=== PATIENT | male | born 1940 | race Caucasian/White ===

== ENCOUNTER 2021-12-26 23:01 | Inpatient (IN) | payer MEDICARE ==
[~2021-12-26] VITALS: Ht 180.3 cm; Wt 104.5 kg
[2021-12-26 23:53] LABS: COLLECTION METHOD CATHETER
[2021-12-27 00:17] LABS: ALBUMIN 3.3 gm/dL (3.4-4.8); BILIRUBIN,TOTAL 1.4 mg/dL (0.2-1.2); CALCIUM 8.5 mg/dL (8.4-10.2); CREATININE, serum 1.4 mg/dL (0.72-1.25); POTASSIUM 4.3 mmol/L (3.5-4.5)
[2021-12-27 00:26] LABS: HEMOGLOBIN 12.1 g/dl (13.5-18.0); MEAN CELL VOLUME 97 fl (80.0-100.0); MEAN CORPUSCULAR HEMOGLOBIN 32 pg (27-31); MEAN CORPUSCULAR HGB CONC 34 g/dl (33.0-37.0); MEAN PLATELET VOLUME 9.6 fl (7.4-10.4); MUCOUS Present (NOT PRESENT); PH 5 (5-8); PLATELET COUNT 104 K/mm3 (130-400); RED BLOOD COUNT 3.73 M/mm3 (4.20-5.60); REDCELL DISTRIBUTION WIDTH-CV 14.1 % (11.5-14.5); SQUAMOUS EPITHELIAL 0-2 /hpf (0-10); URINE APPEARANCE Cloudy (CLEAR/HAZY); URINE BACTERIA Rare /hpf (NONE SEEN); URINE BILIRUBIN Negative (NEGATIVE); URINE BLOOD 2+ (NEGATIVE); URINE COLOR Amber (YELLOW); URINE GLUCOSE Negative (NEGATIVE); URINE KETONE Negative (NEGATIVE); URINE LEUKOCYTE ESTERASE 3+ (NEGATIVE); URINE NITRATE Positive (NEGATIVE); URINE PROTEIN(semi-quant) 1+ (NEGATIVE); URINE UROBILINOGEN Negative (NEGATIVE)
[2021-12-27] MEDS ORDERED: CRESTOR5 MG PO (00:50)
[2021-12-27] MEDS ORDERED: ZETIA 10MG TAB10 MG PO (00:51)
[2021-12-27] MEDS ORDERED: ZIAC 5/6.25MG T1 TAB PO (00:51)
[2021-12-27] MEDS ORDERED: FLOMAX 0.40.4 MG/CAP PO (00:52)
[2021-12-27] MEDS ORDERED: ZYLOPRIM 300MG300 MG PO (00:52)
[2021-12-27] MEDS ORDERED: ASPIRIN 81M81 MG/TA2 PO (00:53)
[2021-12-27] MEDS ORDERED: TYLENOL PM EXTR1 TA1 PO (00:53)
[2021-12-27] MEDS ORDERED: OMEGA-3 1000 MG1 CAP PO (00:55)
[2021-12-27] MEDS ORDERED: TURMERIC500 MG PO (00:55)
[2021-12-27] MEDS ORDERED: MULTI VITAMINS1 TAB PO (00:55)
[2021-12-27] MEDS ORDERED: B-12 500 MCG PO (00:56)
[2021-12-27] MEDS ORDERED: CALCIUM 600 PLU1 TAB PO (00:56)
[2021-12-27 01:04] LABS: BAND 9 % (0-10); EOSINOPHIL 1 % (0-4); NEUTROPHILS 85 % (42.0-75.2)
[2021-12-27 01:06] LABS: HYPOCHROMIA 1+; PLATELET ESTIMATE NORMAL (NORMAL)
[2021-12-27 01:07] LABS: ANISOCYTOSIS 1+
[2021-12-27 02:46] LABS: INR 1.5 (0.8-3.0); PROTHROMBIN TIME 16.9 SECONDS (9.7-12.8)
[2021-12-27 04:03] LABS: BASO # 0.1 K/mm3 (0.0-0.2); BASO % 0.3 % (0.0-2.0); EOS % 0.1 % (0.0-4.0); GRAN # 13.5 K/mm3 (1.4-6.5); HEMATOCRIT 37.9 % (42.0-52.0); HEMOGLOBIN 12.8 g/dl (13.5-18.0); LYMPH # 0.4 K/mm3 (1.2-3.4); LYMPH % 2.3 % (20.0-51.0); MEAN CELL VOLUME 96 fl (80.0-100.0); MEAN CORPUSCULAR HEMOGLOBIN 33 pg (27-31); MEAN CORPUSCULAR HGB CONC 34 g/dl (33.0-37.0); MEAN PLATELET VOLUME 9.6 fl (7.4-10.4); MONO % 6.5 % (1.7-9.3); PLATELET COUNT 89 K/mm3 (130-400); RED BLOOD COUNT 3.94 M/mm3 (4.20-5.60); REDCELL DISTRIBUTION WIDTH-CV 14.2 % (11.5-14.5)
[2021-12-27 04:23] LABS: ALBUMIN 3.3 gm/dL (3.4-4.8); BILIRUBIN,TOTAL 1.7 mg/dL (0.2-1.2); CALCIUM 8.3 mg/dL (8.4-10.2); CREATININE, serum 1.36 mg/dL (0.72-1.25); POTASSIUM 4.4 mmol/L (3.5-4.5); TOTAL PROTEIN 7.1 gm/dL (6.2-8.1)
--- NOTE | 2021-12-27 07:13 | NUR ---
1L bolus given in ED. Now on maintenance fluids of NS at 150 ml/hr. Sepsis fluid bolus intervention BECKY'adan.
[2021-12-27 07:56] VITALS: BP 145/70; PULSE 93; TEMP 98.5
--- NOTE | 2021-12-27 09:07 | NUR ---
Scheduled medications given. Admission assessment completed. Medications, allergies, and pharmacy preference reviewed. Patient currenlty requiring 2.5 L of O2 via nasal cannula. Medina catheter in place, cloudy dark yellow urine noted. Mucous present. Securement device in use, no kinks in tubing. Patient states that he has "A slight headache", but denies any further pain. VSS. Patient A&O. Call light in reach.
[2021-12-27 11:01] VITALS: BP 124/70; PULSE 87; TEMP 98.3
--- NOTE | 2021-12-27 14:03 | NUR ---
Pt lives at home with spouse,mando, . The pt is independent on all adls and does not use any DME. The pt reports DPO[employer] paperwork is done and his brother, sandy has it. 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 The pt reports still drives, and his pcp is Dr. Man and gets medications from [facility]. DC: Home
[2021-12-27 16:35] VITALS: BP 157/81; PULSE 97; TEMP 99.2
--- NOTE | 2021-12-27 18:30 | NUR ---
Patient has had an uneventful day. Currently requiring 4L of O2 via nasal cannula. Denies any pain, discomfort, SOA, or further needs at this time. Medina catheter in place, securement device in use, No kinks in tubing. Call light in reach.
[2021-12-27 20:06] VITALS: BP 145/58; PULSE 96; TEMP 99.4
--- NOTE | 2021-12-27 20:30 | NUR ---
Initial shift assessment done- Alert/orientedx4, states cannot get comfortable in the bed- moving side to side- has the o2 at 4L/oxymask, Appears flushed,, temp 99.3, IV fluids of NS at 150cc/hr- Medina to DD with yellow urine with sediment.
[2021-12-27 23:55] VITALS: BP 175/82; PULSE 88; TEMP 98.3
[2021-12-28] VITALS (25 sets, daily range): BP systolic 125–189; BP diastolic 54–108; PULSE 64–130; TEMP 97.2–99.1
--- NOTE | 2021-12-28 05:41 | NUR ---
Highest temp this shift was 99.4 at the start of the shift-- o2 at 4L/nc with sats 93%, No requests at this time, has been sleeping most of the shift.
[2021-12-28 06:47] LABS: BASO % 0.2 % (0.0-2.0); EOS % 0.3 % (0.0-4.0); GRAN # 11.5 K/mm3 (1.4-6.5); GRAN % 80.4 % (42.2-75.2); HEMOGLOBIN 12.3 g/dl (13.5-18.0); LYMPH # 1.2 K/mm3 (1.2-3.4); LYMPH % 8.7 % (20.0-51.0); MEAN CELL VOLUME 96 fl (80.0-100.0); MEAN CORPUSCULAR HEMOGLOBIN 33 pg (27-31); MEAN CORPUSCULAR HGB CONC 34 g/dl (33.0-37.0); MONO # 1.4 K/mm3 (0.1-0.6); MONO % 9.6 % (1.7-9.3); PLATELET COUNT 102 K/mm3 (130-400); RED BLOOD COUNT 3.77 M/mm3 (4.20-5.60); REDCELL DISTRIBUTION WIDTH-CV 14.1 % (11.5-14.5)
[2021-12-28 06:50] LABS: HEMATOCRIT 36.2 % (42.0-52.0); INR 1.4 (0.8-3.0)
[2021-12-28 07:07] LABS: BILIRUBIN,TOTAL 1.2 mg/dL (0.2-1.2); CALCIUM 8.3 mg/dL (8.4-10.2); CREATININE, serum 1.28 mg/dL (0.72-1.25); POTASSIUM 3.8 mmol/L (3.5-4.5); TOTAL PROTEIN 6.7 gm/dL (6.2-8.1)
--- NOTE | 2021-12-28 08:00 | NUR ---
PT INC SOB SO OXYGEN INC, BP INC, BP MEDS GIVEN WITH NORMAL SCHEDULED MEDS. PT VERY WEAK, UNABLE TO MOVE ON HIS OWN WITHOUT ASSISTANCE, SHEN IN PLACE, ASSESSMENT PERFORMED, IV FLUIDS INFUSING, NO OTHER NEEDS
--- NOTE | 2021-12-28 11:30 | NUR ---
KRISHNA VERGARA NOTIFIED OF PT INC HR, BP, AND OXYGEN NEEDS. EKG ORDER PLACED, PT PLACED ON TELE, RVP OBTAINED AND SENT TO LAB, CARDIZEM IV PUSHED PER ORDER AND TELE NOTIFIED OF ADMINISTRATION, CHRISTY NOTIFIED OF RVP RESULTS AND PT HR AFTER CARDIZEM. PT PLACED IN DROPLET PRECAUTIONS, PT SHEN LEAKING, READVANCED WITH MORE SALINE PLACED IN [place].
--- NOTE | 2021-12-28 14:26 | NUR ---
SW asked the clinical team for PT/OT to be ordered.
--- NOTE | 2021-12-28 16:06 | NUR ---
NOTIFIED DR. HARRISON OF PT HR AND BP, ORDERED CARDIZEM GTT AT 5ML/HR, ORDER PLACED
--- NOTE | 2021-12-28 16:44 | NUR ---
CARDIZEM DRIP STARTED PER ORDER, ATTACHED TO VITALS TO MONITOR
[2021-12-28 17:42] LABS: PARTIAL THROMBOPLASTIN TIME 37.1 SECONDS (26.0-37.0)
--- NOTE | 2021-12-28 17:49 | NUR ---
CARDIZEM DRIP INFUSING, HEPARIN DRIP STARTED PER PROTOCOL, HEPXA ORDER PLACED, PT REPORTS GENERALIZED PAIN BUT "FEELS MUCH BETTER" THAN EARLIER. PT HAS SOB AT REST, NO OTHER NEEDS
--- NOTE | 2021-12-28 18:35 | NUR ---
JULES HOLLAND NOTIFIED OF PT INC BP, ORDERED TO INC CARDIZEM GTT TO 10ML/HR
--- NOTE | 2021-12-28 23:17 | NUR ---
Patient assessed around 2029. Alert and oriented x 4, and able to make needs known. Denies pain and discomfort. Denies SOB and dyspnea at rest, does with exertion. LS expiratory wheezes. On oxygen at 8 L/min via NC. HRI. Continues on cardizem drip and heparin drip per orders. Voices no questions, needs, or concerns at this time. Daughter called and given update along with . All questions answered. Patient in bed with call light within reach.
[2021-12-29] VITALS (13 sets, daily range): BP systolic 112–157; BP diastolic 65–108; PULSE 76–105; TEMP 97.7–98.7
--- NOTE | 2021-12-29 06:33 | NUR ---
Patient has been resting in bed with call light within reach. Medina did leak a little. Changed, catheter care provided. Voices no further questions, needs, or concerns at this time. In bed with call light within reach.
[2021-12-29 06:39] LABS: BASO % 0.1 % (0.0-2.0); GRAN # 6.5 K/mm3 (1.4-6.5); GRAN % 83.3 % (42.2-75.2); HEMOGLOBIN 12.5 g/dl (13.5-18.0); LYMPH # 0.9 K/mm3 (1.2-3.4); LYMPH % 11.3 % (20.0-51.0); MEAN CELL VOLUME 92 fl (80.0-100.0); MEAN CORPUSCULAR HEMOGLOBIN 32 pg (27-31); MEAN CORPUSCULAR HGB CONC 35 g/dl (33.0-37.0); MEAN PLATELET VOLUME 9.8 fl (7.4-10.4); MONO # 0.4 K/mm3 (0.1-0.6); MONO % 4.9 % (1.7-9.3); PLATELET COUNT 113 K/mm3 (130-400); RED BLOOD COUNT 3.92 M/mm3 (4.20-5.60)
[2021-12-29 06:47] LABS: HEMATOCRIT 36.2 % (42.0-52.0)
[2021-12-29 06:48] LABS: ALBUMIN 2.8 gm/dL (3.4-4.8); BILIRUBIN,TOTAL 1.1 mg/dL (0.2-1.2); CALCIUM 8.8 mg/dL (8.4-10.2); CREATININE, serum 1.17 mg/dL (0.72-1.25); POTASSIUM 3.5 mmol/L (3.5-4.5)
[2021-12-29 06:59] LABS: INR 1.4 (0.8-3.0); PROTHROMBIN TIME 15.2 SECONDS (9.7-12.8)
--- NOTE | 2021-12-29 08:00 | NUR ---
PT PLEASANT, SOB AT REST, REPOSITIONED IN BED, MEDICATIONS GIVEN, ASSESSMENT PERFORMED
--- NOTE | 2021-12-29 10:20 | NUR ---
PO CARDIZEM GIVEN, WILL DC IV CARDIZEM PER PROTOCOL AT 1220
--- NOTE | 2021-12-29 13:24 | NUR ---
OT is recommending home health. The patient's RN notified MARK that the patient's daughter would like to speak to SW about getting home health set up. SW contacted the patient's daughter, Quiana (ph#[phone], to address the above. Quiana confirms that they would like to get home health set up. SW read Medicare.gov's list of home health agencies that service [place] and their ratings to Quiana over the phone. Quiana chose 1) [facility] 2) [facility]. MARK contacted and faxed a referral to Verenice at [facility]. Verenice reports that they do take Medicare [employer], but will check insurance to make sure he would not have any co-pays.
--- NOTE | 2021-12-29 17:56 | NUR ---
SHEN CATHETER LEAKING THROUGHOUT SHIFT, DR. HARRISON NOTIFIED, SUGGESTED TO PULL CATHETER. WILL WATCH OVER NIGHT FOR URINE RETENTION.
--- NOTE | 2021-12-29 21:00 | NUR ---
Initial shift assessment done- Denies pain but just cant get comfortable--will give some Tylenol before bed, tele on afib/rate 90/min, denies nausea- zofran given earlier was effective, droplet precautions, SCD,s on, o2 at 7L/nc with humidity- sats 91-92%, Heparing drip was at 20cc/hr but DC,d at this time per orders, started on Eliquis tonight-
[2021-12-30 04:33] VITALS: BP 128/74; PULSE 70; TEMP 97.9
--- NOTE | 2021-12-30 05:06 | NUR ---
Has had just a few hours of sleep- up in chair for awhile- now back to bed, VSS, o2 at 7L/nc with sats 90-94%, was given Tylenol x2 for headache-VSS
[2021-12-30 06:39] LABS: BASO % 0.1 % (0.0-2.0); GRAN # 9.3 K/mm3 (1.4-6.5); GRAN % 86.5 % (42.2-75.2); HEMOGLOBIN 11.5 g/dl (13.5-18.0); LYMPH # 0.7 K/mm3 (1.2-3.4); LYMPH % 6.8 % (20.0-51.0); MEAN CELL VOLUME 93 fl (80.0-100.0); MEAN CORPUSCULAR HEMOGLOBIN 32 pg (27-31); MEAN CORPUSCULAR HGB CONC 35 g/dl (33.0-37.0); MEAN PLATELET VOLUME 10.1 fl (7.4-10.4); MONO # 0.6 K/mm3 (0.1-0.6); MONO % 5.9 % (1.7-9.3); PLATELET COUNT 141 K/mm3 (130-400); RED BLOOD COUNT 3.57 M/mm3 (4.20-5.60); REDCELL DISTRIBUTION WIDTH-CV 13.9 % (11.5-14.5)
[2021-12-30 06:42] LABS: INR 1.5 (0.8-3.0)
[2021-12-30 06:48] LABS: HEMATOCRIT 33.2 % (42.0-52.0)
[2021-12-30 06:52] LABS: CALCIUM 8.4 mg/dL (8.4-10.2); CREATININE, serum 1.15 mg/dL (0.72-1.25); POTASSIUM 3.5 mmol/L (3.5-4.5)
[2021-12-30 08:00] VITALS: BP 152/90; PULSE 87; TEMP 97.2
--- NOTE | 2021-12-30 09:00 | NUR ---
Shift assessment complete. Pt resting in bed. A&Ox4. Remains in Afib, rate controlled. Lungs diminished to auscultation. Pt reports intermittent SOA. NC on at 7 lpm. Assisted into recliner to eat breakfast. Denies further needs. Call light in reach.
--- NOTE | 2021-12-30 11:20 | NUR ---
The patient's daughter, Quiana, left a voicemail inquiring about rehab. SW contacted Quiana to follow up. Quiana reports that it appears that the patient is doing better. SW reviewed PT/OT's recommendations of home with home health vs outpatient PT. Quiana would like to pursue with the plan for going home with home health with [facility].
[2021-12-30 12:00] VITALS: BP 128/80; PULSE 68
--- NOTE | 2021-12-30 13:24 | NUR ---
Verenice, at [facility], reports that they are able to accept the patient for services and insurance is good.
[2021-12-30 15:28] VITALS: BP 126/82; PULSE 75; TEMP 97.8
[2021-12-30 20:55] VITALS: BP 134/81; PULSE 82; TEMP 97.7
--- NOTE | 2021-12-30 23:03 | NUR ---
Patient assessed around 1950. Alert and oriented x 4, and able to make needs known. Denies pain and discomfort. Peripheral INTs to left and right forearm. On oxygen at 4 L/min via NC. Reports SOB has been much better today. LS CTA in upper lobes, diminished in lower. Respirations even and unlabored. HRI. Telemetry in place. Continues to have hypoactive bowel sounds. Reports he is passing gas but has not had a BM for a while. Taking stool softeners per orders. Bladder scanned patient with result of 200 mls. Voices he has not had any pain or discomfort with urination. Called daughter Quiana and given update. Patient voices no questions, needs, or concerns at this time. In bed with call light within reach.
[2021-12-31 00:25] VITALS: BP 130/81; PULSE 82; TEMP 96.7
[2021-12-31 05:05] VITALS: BP 121/76; PULSE 71; TEMP 97.6
--- NOTE | 2021-12-31 05:55 | NUR ---
Patient has been resting in bed with call light within reach. RT put patient on room air during the night. Oxygen saturations 91-93%. Voices no questions, needs, or concerns at this time. In bed with call light within reach.
[2021-12-31 06:23] LABS: BASO % 0.2 % (0.0-2.0); GRAN # 8.4 K/mm3 (1.4-6.5); GRAN % 85.9 % (42.2-75.2); HEMOGLOBIN 11.5 g/dl (13.5-18.0); LYMPH # 0.8 K/mm3 (1.2-3.4); LYMPH % 7.7 % (20.0-51.0); MEAN CELL VOLUME 96 fl (80.0-100.0); MEAN CORPUSCULAR HEMOGLOBIN 32 pg (27-31); MEAN CORPUSCULAR HGB CONC 34 g/dl (33.0-37.0); MONO # 0.5 K/mm3 (0.1-0.6); MONO % 5.1 % (1.7-9.3); PLATELET COUNT 163 K/mm3 (130-400); RED BLOOD COUNT 3.58 M/mm3 (4.20-5.60)
[2021-12-31 06:37] LABS: CALCIUM 8.2 mg/dL (8.4-10.2); CREATININE, serum 1.18 mg/dL (0.72-1.25); POTASSIUM 3.7 mmol/L (3.5-4.5)
[2021-12-31 06:41] LABS: HEMATOCRIT 34.2 % (42.0-52.0)
[2021-12-31 08:34] VITALS: BP 149/79; PULSE 80; TEMP 97.7
[2021-12-31] MEDS ORDERED: ZEBETA 5MG5 MG PO (10:05)
[2021-12-31] MEDS ORDERED: CARDIZEM CD 24240 MG PO (10:06)
[2021-12-31 11:18] VITALS: BP 162/87; PULSE 77; TEMP 97.5
[2021-12-31] MEDS ORDERED: ELIQUIS 5MG PO (13:17)
[2021-12-31] MEDS ORDERED: LASIX 20MG TABL20 MG PO (13:18)
[2021-12-31] MEDS ORDERED: BACTRIM DS 8001 TAB PO (13:19)
[2021-12-31] MEDS ORDERED: LEVAQUIN 750MG750 M1 PO (13:19)
--- NOTE | 2021-12-31 13:52 | NUR ---
An exercise oximetry was ordered. RT notified SW that the patient did not qualify for oxygen. The patient is to discharge back home with his today, 12/31, with home health services for group home/PT/OT from [facility]. SW notified and faxed orders to Verenice at [facility]. The patient has whooping cough. SW contacted and updated the patient's daughter, Joy, and read the IM form outloud to her. Joy verbalized understanding and gave SW approval to sign the form on her behalf. Joy reports that [facility] has already reached out to her, but she is hoping that their therapist can call her today, to set up that appointment. SW attempted to notify Verenice at [facility]. SW left her a voicemail on this.
--- NOTE | 2021-12-31 17:22 | NUR ---
Discharge orders discussed, instructed to follow up as we have scheduled, discussed all new meds and med changs/ scripts sent to pharmacy for him, IV site adn tele removed, leaving with his daughter, CARRI escorted them out the door
== END 2021-12-31 17:23 | disposition home health service (06) | DRG 871 ==
LOC: COL.ER 23:01 → MEDICAL 12-27 02:07
PROVIDERS: Nurse Practitioner; Nurse Practitioner Family; Physician Assistant; Student in an Organized Health Care Education/Training Program; ADMIT Internal Medicine
DX: A41.52 Sepsis due to Pseudomonas (principal); J96.01 Acute respiratory failure with hypoxia; E87.2 Acidosis; N17.9 Acute kidney failure, unspecified; A37.10 Whooping cough due to Bordetella parapertussis without pneumonia; E78.5 Hyperlipidemia, unspecified; R65.20 Severe sepsis without septic shock; I10 Essential (primary) hypertension; M10.9 Gout, unspecified; N40.1 Benign prostatic hyperplasia with lower urinary tract symptoms; R39.15 Urgency of urination; R32 Unspecified urinary incontinence; E11.65 Type 2 diabetes mellitus with hyperglycemia; D64.9 Anemia, unspecified; D69.6 Thrombocytopenia, unspecified; N32.89 Other specified disorders of bladder; K59.00 Constipation, unspecified; I48.91 Unspecified atrial fibrillation; I25.10 Atherosclerotic heart disease of native coronary artery without angina pectoris; I45.10 Unspecified right bundle-branch block; Z87.891 Personal history of nicotine dependence; Z79.82 Long term (current) use of aspirin; Z23 Encounter for immunization
CPT/HCPCS: 99233-AI; 99239; J0692; J1170; J1644; J1650; J1815; J1940; J2405; J2543; J2920; J7030; J7512; Q9967

== ENCOUNTER 2022-01-12 20:07 | Emergency (ER) | payer MEDICARE ==
[~2022-01-12] VITALS: Ht 182.9 cm; Wt 100.9 kg
[~2022-01-12 20:07] MED LIST: ASPIRIN 81M81 MG/TA2 PO; B-12 500 MCG PO; BACTRIM DS 8001 TAB PO; CALCIUM 600 PLU1 TAB PO; CARDIZEM CD 24240 MG PO; CRESTOR5 MG PO; ELIQUIS 5MG PO; FLOMAX 0.40.4 MG/CAP PO; LASIX 20MG TABL20 MG PO; LEVAQUIN 750MG750 M1 PO; MULTI VITAMINS1 TAB PO; OMEGA-3 1000 MG1 CAP PO; TURMERIC500 MG PO; TYLENOL PM EXTR1 TA1 PO; ZEBETA 5MG5 MG PO; ZETIA 10MG TAB10 MG PO; ZIAC 5/6.25MG T1 TAB PO; ZYLOPRIM 300MG300 MG PO
[2022-01-12] MEDS ORDERED: MYCELEX10 MG/TAB MM (20:28)
[2022-01-12 21:06] VITALS: BP 112/62; PULSE 62; TEMP 98.2
== END 2022-01-12 21:05 | disposition home or self-care (01) ==
LOC: COL.ER 20:07
DX: B37.0 Candidal stomatitis (principal); Z87.01 Personal history of pneumonia (recurrent)